=== PATIENT | male | born 1970 | race Caucasian/White ===

== ENCOUNTER 2017-02-23 15:27 | Inpatient (IN) | payer OTHER ==
[2017-02-23 15:54] LABS: GRAN # 3.21 (1.4-6.5); GRAN % 72.5 % (50.0-68.0); HEMOGLOBIN 12.9 g/dL (14.0-18.0); LYMPH # 1.1 (1.2-3.4); LYMPH % 25.5 % (22.0-35.0); MEAN CELL VOLUME 76.8 fl (80.0-105.0); MEAN CORPUSCULAR HEMOGLOBIN 25.1 pg (25.0-35.0); MEAN CORPUSCULAR HGB CONC 32.7 g/dl (31.0-37.0); MONO # 0.1 (0.1-0.6); RBC 5.13 10^6/uL (3.5-6.1); RED CELL DISTRIBUTION WIDTH 13.1 % (11.5-14.5); WHITE BLOOD COUNT 4.4 10^3/ul (4.5-11.0)
[2017-02-23 16:03] LABS: ALB/GLOB RATIO 1.1 (1.1-1.8); ALBUMIN 4.1 g/dL (3.0-4.8); ALT/SGPT 36 U/L (7-56); AST/SGOT 32 U/L (17-59); BLOOD UREA NITROGEN 16 mg/dL (7-21); CALCIUM 9.4 mg/dL (8.4-10.5); GFR AFRICAN-AMERICAN > 60; GFR NON-AFRICAN AMERICAN > 60; HDL CHOLESTEROL 31 mg/dL (29-60)
[2017-02-23 16:14] LABS: LDL CHOLESTEROL 131 mg/dL (0-129)
[2017-02-23 16:17] LABS: INR 1.15 (0.93-1.08); PROTHROMBIN TIME 13.2 SECONDS (9.4-12.5); TROPONIN I < 0.01 ng/mL
--- NOTE | 2017-02-23 16:49 | CT ---
PROCEDURE: CT HEAD WITHOUT CONTRAST. HISTORY: Code Stroke. The possible seizure COMPARISON: None available. TECHNIQUE: Axial computed tomography images were obtained through the head/brain without intravenous contrast. Radiation dose: Total exam DLP = 905.29 mGy-cm. This CT exam was performed using one or more of the following dose reduction techniques: Automated exposure control, adjustment of the mA and/or kV according to patient size, and/or use of iterative reconstruction technique. FINDINGS: HEMORRHAGE: No acute parenchymal, subarachnoid or extra-axial hemorrhage. BRAIN: No evidence of large acute infarct. No atrophy or chronic microvascular ischemic changes. VENTRICLES: No obstructive hydrocephalus. CALVARIUM: No acute calvarial fracture seen. PARANASAL SINUSES: Visualized paranasal sinuses are well-developed and currently well-aerated. . MASTOID AIR CELLS: Unremarkable as visualized. No inflammatory changes. OTHER FINDINGS: Orbits and contents unremarkable. IMPRESSION: No acute intracranial hemorrhage. . Note that these findings were discussed with Dr. Crain at approximately 4:40 p.m. with written down and read back verification.
--- NOTE | 2017-02-23 17:09 | ED PDOC ---
Arrival/HPI - General Chief Complaint: Altered Mental Status Time Seen by Provider: 02/23/17 15:45 Historian: Patient, Family, EMS - History of Present Illness Narrative History of Present Illness (Text): 02/23/17 20:53 Patient is a 46 yo male presents via ambulance for reportedly "pulling his car bry the side" as per EMS, "getting out and fell in some busehs and someone said his arm was twitching". History initially obtained via EMS personnel as no family present. On my exam, patient initially is sleepy but easily arousable. He states to me that he has been "sick" for a few days. He denies to me having any headache but reports that he has pain when he breathes and feels short of breath. Denies abdominal pain. Denies trauma. States he does not have prior seizure history. Initial history limited due to clinical condition and language barrier. Time/Duration: Prior to Arrival Symptom Onset: Sudden Past Medical History - Infectious Disease Hx of Infectious Diseases: None - Psychiatric Hx Substance Use: No Family/Social History Smoking Status: Unknown If Ever Smoked Hx Alcohol Use: No Hx Substance Use: No Allergies/Home Meds Allergies/Adverse Reactions: Allergies Unobtainable Allergy (Verified 02/23/17 15:38) Home Medications: Home Meds Medication Instructions Recorded Confirmed Unobtainable 02/23/17 02/23/17 Review of Systems - Review of Systems Constitutional: Fatigue, Fevers, Night Sweats Eyes: absent: Vision Changes, Photophobia, Eye Pain ENT: Sinus Congestion. absent: Hearing Changes, Voice Changes, Sore Throat, Rhinorrhea Respiratory: SOB, Cough. absent: Sputum, Wheezing Cardiovascular: Chest Pain, CARREON. absent: Palpitations, Edema, Calf Pain Gastrointestinal: Nausea, Appetite Changes. absent: Abdominal Pain, Constipation, Diarrhea, Hematochezia Genitourinary Male: absent: Dysuria, Frequency, Hematuria Musculoskeletal: Myalgias Skin: absent: Rash Neurological: Dizziness. absent: Headache, Focal Weakness, Seizure Endocrine: absent: Polyuria Hemo/Lymphatic: absent: Easy Bleeding Psychiatric: absent: Anxiety, Depression, Suicidal Ideation Physical Exam Vital Signs Reviewed: Yes Vital Signs Temp Pulse Resp BP Pulse Ox 02/23/17 20:00 103.3 F H 116 H 20 107/58 L 94 L 02/23/17 18:12 103.5 F H 120 H 18 128/53 L 99 02/23/17 17:58 100.0 F H 02/23/17 15:27 100 F H 134 H 20 95/83 L 95 Temperature: Febrile Pulse: Tachycardic Appearance: Positive for: Ill-Appearing Pain Distress: None Mental Status: Positive for: other (sleepy but arousable) - Systems Exam Head: Present: Atraumatic, Normocephalic Pupils: Present: PERRL Extroacular Muscles: Present: EOMI. No: Gaze Palsy Conjunctiva: No: Injected, Icteric Mouth: Present: Dry Pharnyx: No: ERYTHEMA, EXUDATE, Muffled/Hoarse Voice, Strider Nose (Internal): Present: Normal Inspection, No Active Bleeding Neck: Present: Normal Range of Motion. No: Meningeal Signs, MIDLINE TENDERNESS Respiratory/Chest: Present: Clear to Auscultation, Good Air Exchange. No: Respiratory Distress, Accessory Muscle Use Cardiovascular: Present: Tachycardic Abdomen: No: Tenderness, Distention Rectal: Present: Hemorrhoids. No: Gross Blood Upper Extremity: No: Cyanosis, Edema Lower Extremity: Present: NORMAL PULSES. No: Edema Neurological: Present: Speech Normal, Motor Func Grossly Intact, Normal Sensory Function. No: Memory Normal Skin: Present: Diaphoretic, Pale Psychiatric: Present: Alert, Normal Insight Medical Decision Making ED Course and Treatment: 02/23/17 15:48 Impression: 46 year old male presents to the Emergency department for AMS. Plan: -- Blood type/screen -- VBG -- CT of head -- Labs -- EKG -- Chest X-ray -- IV fluids -- Recephin -- Tamiflu Cap -- Toradol -- Tylenol -- Blood Culture -- Urine Culture -- Reassess and disposition Progress Notes: Patient presents via ALS. Hx obtained from prehospital personnel, and patient is able to communicate with some limited Congolese. On initial exam he is sleepy but arousable and follows commands, moves all extremities and answers basic questions. 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 It is NOT reported that patient had violent shaking activity or was unresponsive. CODE stroke called and patient's case reviewed initially with oncall neuro Dr. Rodriguez 02/23/17 16:00 CT of head reviewed by radiologist, shows no acute intracranial hemorrhage. 02/23/17 16:00 Chest X-ray reviewed by radiologist, shows no acute processes. Patient re-evaluated upon return from CT. He is arousable and answers questions. He is noted be tachycardic and mildly hypotensive. No seizure activity noted with serial exams in ED. IV fluids ordered. Patient found to be febrile. Tylenol ordered and iv fluids continued. No respiratory distress noted. At this time we were able to communicate with patient additionally through machine erector phone. He answers questions and communicates appropriately. He denies seizure history. He states he has been "sick" with chills and bodyaches for past three days. He has been taking medication from his home country of [place]. He states he has bee present in the country for several months. He states he remember driving in his car and "feeling cold and shaky". He states he felt so weak that he pulled the car over but then he states he does not know what happened. I suspect possible syncopal episode, with differential including ? seizure, although patient does not appear to be postictal and there is currently no signs of acute trauma. Patient tachycardic but no hypoxia, no calf pain. I suspect tachy due to fever. Neck is consistently supple and he denies any headache or neck pain. Toradol ordered. Tamiflu ordered. Rocephin ordered ? respiratory infection although cxr read as clear. No wheezing on exam. Patient has been taking antibiotic from [place] past three days. No rash noted. No abdominal pain with serial exams. CT angio ordered as he is persistently tachy, complains of chest pain with breaths. Will admit to hospitalist for serial exams, monitoring, serial neuro exams, evaluation for infectious process. Case d/w Dr. Meyers accept admission to hospitalist. Patient's family at bedside. He supplements history and has communicated plan to patient he is agreeable to admission. 02/23/17 21:01 CT of chest reviewed by radiologist, shows no aneurysm, dissection or central pulmonary embolus; motion and bolus timing limits evaluation of peripheral arteries; no focal pneumonia. - Lab Interpretations Lab Results: 02/23/17 15:51 02/23/17 15:51 Lab Results 02/23/17 18:37: Blood Type Confirm B POSITIVE 02/23/17 18:13: Urine Opiates Screen Negative, Urine Methadone Screen Negative, Ur Barbiturates Screen Negative, Ur Phencyclidine Scrn Negative, Ur Amphetamines Screen Negative, U Benzodiazepines Scrn Negative, U Oth Cocaine Metabols Negative, U Cannabinoids Screen Negative 02/23/17 17:36: Influenza Typ A,B (EIA) Negative for flu a/b 02/23/17 16:41: pO2 50, VBG pH 7.38, VBG pCO2 43.0, VBG HCO3 25.4, VBG Total CO2 26.7, VBG O2 Sat (Calc) 89.9 H, VBG Base Excess 0.0, VBG Potassium 4.1, Glucose 135 H, Lactate 1.7, FiO2 21.0, Sodium 135.0, Chloride 104.0, Venous Blood Potassium 4.1 02/23/17 16:41: Blood Type B POSITIVE, Antibody Screen Negative, BBK History Checked No verified bt 02/23/17 15:51: Sodium 137, Potassium 4.1, Chloride 102, Carbon Dioxide 22, Anion Gap 18, BUN 16, Creatinine 1.1, Est GFR ( Amer) > 60, Est GFR (Non- Af Amer) > 60, Random Glucose 150 H, Calcium 9.4, Total Bilirubin 0.8, AST 32, ALT 36, Alkaline Phosphatase 56, Lactate Dehydrogenase 488, Total Creatine Kinase 73, Troponin I < 0.01, Total Protein 7.7, Albumin 4.1, Globulin 3.6, Albumin/Globulin Ratio 1.1, Triglycerides 103, Cholesterol 189, LDL Cholesterol Direct 131 H, HDL Cholesterol 31 02/23/17 15:51: PT 13.2 H, INR 1.15 H, APTT 27.0 02/23/17 15:51: WBC 4.4 L, RBC 5.13, Hgb 12.9 L, Hct 39.4 L, MCV 76.8 L, MCH 25.1, MCHC 32.7, RDW 13.1, Plt Count 126, MPV 12.0 H, Gran % 72.5 H, Lymph % ( Auto) 25.5, Union % (Auto) 2.0, Eos % (Auto) 0.0 L, Baso % (Auto) 0.0, Gran # 3.21, Lymph # 1.1 L, Union # 0.1, Eos # 0.0, Baso # 0.00 02/23/17 15:30: Phosphorus 1.3 L*, Magnesium 1.3 L 02/23/17 15:30: Alcohol, Quantitative < 10 02/23/17 15:30: Salicylates < 1 L, Acetaminophen < 10.0 L - RAD Interpretation Radiology Orders: 02/23/17 15:48 HEAD W/O (CODE STROKE) [CT] Stat CHEST PORTABLE [RAD] Stat 02/23/17 18:47 ANGIO CHEST PE PROTOCOL [CT] Stat Human Capital Analyst: Radiologist - EKG Interpretation EKG Interpretation (Text): 02/23/17 21:01 EKG at 1535 sinus tachycardia rate of [address] elevations Interpreted by ED Physician: Yes Type: 12 lead EKG - Medication Orders Current Medication Orders: Potassium Phosphate 15 mmole/ (Sodium Chloride) 255 mls @ 63.75 mls/hr IV .Q4H STA Stop: 02/24/17 01:25 Discontinued Medications Acetaminophen (Tylenol 325mg Tab) 650 mg PO ONCE STA Stop: 02/23/17 17:40 Last Admin: 02/23/17 17:58 Dose: 650 mg MAR Pain/Vitals Document 02/23/17 17:58 [email or web address] (Rec: 02/23/17 17:58 [email or web address] [id number]) Vitals Temperature (97.6 F-99.6 F) 100.0 F Temperature Source Oral Lactated Ringer's 2,850 ml/ IV (SUPPLIES) 2,850 mls @ 5,700 mls/hr IV ONCE ONE PRN Reason: 60 ML/KG/HR Stop: 02/23/17 17:02 Last Admin: 02/23/17 17:22 Dose: 5,700 mls/hr eMAR Start Stop Document 02/23/17 17:22 [email or web address] (Rec: 02/23/17 17:23 [email or web address] [id number]) Intravenous Solution Start Date 02/23/17 Start Time 17:22 End Date 02/23/17 Ceftriaxone Sodium (Rocephin 1 Gram Ivpb) 1 gm in 100 mls @ 200 mls/hr IVPB ONCE STA PRN Reason: Protocol Stop: 02/23/17 18:09 Last Admin: 02/23/17 17:58 Dose: 200 mls/hr eMAR Start Stop Document 02/23/17 17:58 [email or web address] (Rec: 02/23/17 17:58 [employer] [id number]) Intravenous Solution Start Date 02/23/17 Start Time 17:58 End Date 02/23/17 Ketorolac Tromethamine (Toradol) 30 mg IVP ONCE ONE Stop: 02/23/17 18:33 Last Admin: 02/23/17 19:19 Dose: 30 mg MAR Pain Assessment Document 02/23/17 19:19 [facility] [facility] [facility] [employer] (Rec: 02/23/17 19:20 [employer] [facility] [id number]) Pain Reassessment Is this a pain reassessment? No Sleep Is patient sleeping during reassessment? No Presence of Pain Presence of Pain Yes Pain Scale Used Pain Scale Used Numeric Location Left, Right or Bilateral Bilateral Description Description Constant Intensity of Pain at present 2 Pain Behavior Facial Grimacing Aggravating Factors Changing Position Alleviating Factors/Management Position Change Techniques Alleviating Factors Medication IVP Administration Document 02/23/17 19:19 CLAIR (Rec: 02/23/17 19:20 [employer] [id number]) Charges for Administration # of IVP Administrations 1 Oseltamivir Phosphate (Tamiflu Cap) 75 mg PO STAT STA PRN Reason: Protocol Stop: 02/23/17 17:40 Last Admin: 02/23/17 17:58 Dose: 75 mg NIHSS Scale ([place]) Time Performed: 15:40 - How Severe is the Stoke Baseline Level of Consciousness: 1=Drowsy LOC to Questions: 0=Both comments correct LOC to commands: 0=Obeys both correctly Best Gaze: 0=Normal Visual: 0=No visual loss Facial: 0=Normal Motor Arm - Left: 0=No drift Motor Arm - Right: 0=No drift Motor Leg - Left: 0=No drift Motor Leg - Right: 0=No drift Limb Ataxia: 0=Absent Sensory: 0=Normal Best Language: 0=No aphasia Dysarthia: 1=Mild to moderate slurring Extinction & Inattention (Neglect): 0=Normal, no object Score: 2 Risk Level: Minor Stroke Risk rTPA Inclusion/Exclusion - Refusal of Treatment Patient Refused Treatment: Yes - Inclusion Criteria for Altepase Time of Onset is Well Established to be Less Than 270 Minute Before Treatment Would Begin: No Disposition/Present on Arrival - Present on Arrival Any Indicators Present on Arrival: No History of DVT/PE: No History of Uncontrolled Diabetes: No Urinary Catheter: No History of Decub. Ulcer: No History Surgical Site Infection Following: None - Disposition Have Diagnosis and Disposition been Completed?: Yes Diagnosis: Syncope, Fever, Tachycardia, Chest pain, Dyspnea Disposition: HOSPITALIZED Disposition Time: 20:00 Patient Plan: Admission, Telemetry Patient Problems: Current Active Problems Problem Status Onset Chest pain Acute Dyspnea Acute Fever Acute Syncope Acute Tachycardia Acute Condition: SERIOUS
[2017-02-23 17:18] LABS: ACETAMINOPHEN < 10.0 ug/ml (10.0-20.0); SALICYLATE < 1 mg/dL (2.0-20.0)
[2017-02-23 17:26] LABS: MAGNESIUM 1.3 mg/dL (1.7-2.2)
[2017-02-23 17:29] LABS: VENOUS BLOOD GAS PO2 50 mm/Hg (30-55); VENOUS BLOOD PH 7.38 (7.32-7.43)
[2017-02-23] MEDS ORDERED: cefTRIAXone 1 gm 1 GM/100 ML BAG IVPB STA (17:40)
--- NOTE | 2017-02-23 17:40 | RAD ---
HISTORY: Altered mental status. COMPARISON: No prior. FINDINGS: LUNGS: No active pulmonary disease. PLEURA: No significant pleural effusion identified, no pneumothorax apparent. CARDIOVASCULAR: No radiographic findings to suggest acute or significant cardiovascular disease. OSSEOUS STRUCTURES: No significant abnormalities. VISUALIZED UPPER ABDOMEN: Normal. OTHER FINDINGS: None. IMPRESSION: No active disease.
[2017-02-23 18:47] LABS: BARBITURATES, UR NEGATIVE (NEGATIVE); BENZODIAZEPINES, UR NEGATIVE (NEGATIVE); OPIATES, UR NEGATIVE (NEGATIVE); PHENCYCLIDINE, UR NEGATIVE (NEGATIVE)
[2017-02-23] MEDS ORDERED: Iohexol 350 MG/100 ML VIAL ONE (19:08)
--- NOTE | 2017-02-23 19:57 | CARD ---
APPROVED REPORT EKG Measurement Heart [id number] <Conclusion> Sinus tachycardia Otherwise normal ECG
[2017-02-23] MEDS ORDERED: Potassium Phosphate 3 mmol/ml Inj IV STA (20:17)
[2017-02-23] MEDS ORDERED: Potassium Phosphate 15 MMOLE in Sodium Chloride 0.9% 250 ML IV STA (21:26)
--- NOTE | 2017-02-23 21:39 | CT ---
EXAM: CT Angiography Chest With Intravenous Contrast EXAM DATE/TIME: 02/23/2017 6:47 PM CLINICAL HISTORY: 46 years old, male; Signs and symptoms; Shortness of breath; Additional info: R/O pe TECHNIQUE: Axial computed tomographic angiography images of the chest with intravenous contrast using pulmonary embolism protocol. All CT scans at this facility use one or more dose reduction techniques, viz.: automated exposure control; ma/kV adjustment per patient size (including targeted exams where dose is matched to indication; i.e. head); or iterative reconstruction technique. MIP reconstructed images were created and reviewed. Coronal and sagittal reformatted images were created and reviewed. CONTRAST: 100 mL of OMNI 350 administered intravenously. COMPARISON: There are no prior studies for comparison. FINDINGS: Artifacts: Motion artifact degrades image quality. Heart, aorta and Pulmonary arteries: Heart size is normal. There is no pericardial effusion.There is no aneurysm or dissection. Motion and bolus timing limits evaluation of pulmonary arteries. There are no central pulmonary emboli. Peripheral vessels are not optimally opacified which limits evaluation. Lungs and pleural spaces: Trachea and main bronchi are patent. There is no pneumothorax.There is minimal dependent atelectasis in the upper lobes. There is more extensive airspace disease at the lung bases. There is no lobar or segmental consolidation. There are no effusions. Mediastinum: The esophagus is unremarkable. There are no pathologically enlarged mediastinal or hilar nodes. Thyroid: Thyroid is only partially imaged. Bones/joints: There are no acute osseous abnormalities. Soft tissues: unremarkable Upper abdomen: There are no acute abnormalities in the visualized portion of the abdomen. There is a left renal cyst. There is adrenal thickening bilaterally. IMPRESSION: No aneurysm, dissection or central pulmonary embolus; motion and bolus timing limits evaluation of peripheral arteries; no focal pneumonia
[2017-02-23] MEDS ORDERED: Magnesium Sulfate 2 GM in Sodium Chloride 0.9% 100 ML IVPB ONE (22:07)
--- NOTE | 2017-02-23 22:57 | CP.PCM.HP ---
<Huy Lopez - Last Filed: 02/24/17 00:04> History of Present Illness - History of Present Illness History of Present Illness: Mr. Whaley is a 46 year old sami speaking male with a past medical history significant for HLD who was BIBA after he was found to have AMS on the side of the road. According to the patient, for the past three days he has been having dry cough, tactile fever, and intermittent SOB. While at work today in [place], he decided to leave early as he was feeling "weak". On his way home from work, he reports that he began to feel "cold and shaky" so he pulled his car over. Patient states that he has no recollection of any events from that time until he woke up several hours later in the ED. He reports that he has been taking three [place] brand medications, including one antibiotic, for his symptoms for the past two days but that he has not experienced much relief from these medications and cannot recall the name of these medications. While in the ED, patient was noted to be tachycardic and febrile. A chest x-ray, CT head and CTA chest were ordered and showed no acute processes, including intracranial hemorrhage, focal pneumonia and central pulmonary embolus. Of note, patient endorses that he has had intermittent bright red blood per rectum after BM's with a known history of hemorrhoids and intermittent epigastric abdominal discomfort. He denies any recent travel/trauma/surgery/immobilization, sick contacts, headache, changes in his vision, rhinorrhea, ear pain/discharge, sore throat, dysphagia, chest pain, palpitations, leg swelling, orthopnea, wheezing, hemoptysis, N/V, diarrhea, constipation, melena, burning/pain with urination, urinary frequency, hematuria, skin changes, joint pain, or any numbness/tingling /weakness of any extremity. 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[place]; Moved here from [place] four months ago; Estonian is patients first language Allergies: NKDA Home Medications: As per MAR Present on Admission - Present on Admission Any Indicators Present on Admission: No Review of Systems - Review of Systems Review of Systems: As stated in HPI, otherwise negative Past Patient History - Infectious Disease Hx of Infectious Diseases: None - Tetanus Immunizations Tetanus Immunization: Unknown - Past Social History Smoking Status: Unknown If Ever Smoked - PSYCHIATRIC Hx Substance Use: No - SURGICAL HISTORY Hx Surgeries: No Meds Allergies/Adverse Reactions: Allergies Allergy/AdvReac Type Severity Reaction Status Date / Time Unobtainable Allergy Verified 02/23/17 15:38 Physical Exam - Constitutional Appears: Non-toxic, No Acute Distress - Head Exam Head Exam: ATRAUMATIC, NORMAL INSPECTION, NORMOCEPHALIC - Eye Exam Eye Exam: EOMI, Normal appearance, PERRL. absent: Conjunctival injection, Nystagmus, Periorbital swelling, Periorbital tenderness, Scleral icterus Pupil Exam: NORMAL ACCOMODATION, PERRL. absent: Fixed, Irregular, Miosis, Mydriatic, Unequal - ENT Exam ENT Exam: Mucous Membranes Moist, Normal Exam, Normal External Ear Exam, Normal Oropharynx. absent: Mucous Membranes Dry - Neck Exam Neck exam: Positive for: Full Rom, Normal Inspection. Negative for: Lymphadenopathy, Meningismus, Tenderness, Thyromegaly - Respiratory Exam Respiratory Exam: Clear to Auscultation Bilateral, NORMAL BREATHING PATTERN. absent: Accessory Muscle Use, Chest Wall Tenderness, Decreased Breath Sounds, Prolonged Expiratory Phase, Rales, Rhonchi, Wheezes, Respiratory Distress, Stridor - Cardiovascular Exam Cardiovascular Exam: Tachycardia, REGULAR RHYTHM, +S1, +S2 - GI/Abdominal Exam GI & Abdominal Exam: Normal Bowel Sounds, Soft. absent: Bruit, Diminished Bowel Sounds, Distended, Firm, Guarding, Hernia, Hyperactive Bowel Sounds, Hypoactive Bowel Sounds, Mass, Organomegaly, Pulsatile Mass, Rebound, Rigid, Tenderness - Extremities Exam Extremities exam: Positive for: full ROM, normal capillary refill, normal inspection, pedal pulses present. Negative for: calf tenderness, joint swelling , pedal edema, tenderness - Back Exam Back exam: FULL ROM, NORMAL INSPECTION. absent: CVA tenderness (L), CVA tenderness (R), muscle spasm, paraspinal tenderness, rash noted, tenderness, vertebral tenderness - Neurological Exam Neurological exam: Alert, CN II-XII Intact, Oriented x3, Reflexes Normal - Psychiatric Exam Psychiatric exam: Normal Affect, Normal Mood - Skin Skin Exam: Dry, Intact, Normal Color, Warm Results - Vital Signs Recent Vital Signs: Last Vital Signs Temp 103.3 F H 02/23/17 20:00 Pulse 116 H 02/23/17 20:00 Resp 20 02/23/17 20:00 BP 107/58 L 02/23/17 20:00 Pulse Ox 94 L 02/23/17 20:00 - Labs Result Diagrams: 02/23/17 15:51 02/23/17 15:51 Labs: Laboratory Results - last 24 hr 02/23/17 22:21 POC Glucose (mg/dL) 123 H Assessment & Plan - Assessment and Plan (Free Text) Assessment: 46 year old sami speaking male with a past medical history significant for HLD who was BIBA after he was found to have AMS on the side of the road. According to the patient, for the past three days he has been having dry cough, tactile fever, and intermittent SOB. While in the ED, patient was noted to be tachycardic and febrile. A chest x-ray, CT head and CTA chest were ordered and showed no acute processes, including intracranial hemorrhage, focal pneumonia and central pulmonary embolus. Plan: 1. AMS -CT Head negative for acute intracranial process -UDS, Salicylates, and Acetaminophen all within normal limits -Alert and Oriented to person, place, time and event on reevaluation -Current NIHSS score of 0 -Nursing swallow screen passed -Neurochecks Q4 -Fall risk precautions -Neuro consulted 2. SIRS -Likely URI -Chest X-Ray and Chest CTA both negative for active disease, focal pneumonia and PE -Influenza negative -Febrile to 103.5 (rectal) with tachycardia, no leukocytosis/leukopenia, and no tachypnea; Lactate 1.7 -Given one dose of Tamiflu and Rocephin in ED -Rocephin 1gm IVPB daily -Tylenol 650mg PO Q6H PRN for fever -Procal, HIV, Mycoplasma, and Blood Culture pending -Daily CBC 3. Hypophosphatemia -Phosphorous found to be 1.3 -Phosphorous 15mmol supplemented -Daily phosphorous 4. Hypomagnesemia -Magnesium found to be 1.3 -Magnesium Sulfate 2gm IV supplemented -Daily magnesium GI Prophylaxis: Protonix DVT Prophylaxis: SCD's Diet: Heart Healthy Patient seen and case discussed with attending, Dr. Meyers. - Date & Time Date: 02/23/17 Time: 23:06 <Melida Meyers - Last Filed: 02/24/17 04:20> Results - Vital Signs Recent Vital Signs: Last Vital Signs Temp 98.2 F 02/24/17 00:01 Pulse 109 H 02/24/17 02:00 Resp 20 02/24/17 00:01 BP 98/50 L 02/24/17 00:01 Pulse Ox 95 02/24/17 00:01 - Labs Result Diagrams: 02/23/17 15:51 02/23/17 15:51 Labs: Laboratory Results - last 24 hr 02/23/17 22:21 POC Glucose (mg/dL) 123 H Attending/Attestation - Attestation I have personally seen and examined this patient.: Yes I have fully participated in the care of the patient.: Yes I have reviewed all pertinent clinical information: Yes Notes (Text): 02/24/17 04:17 Patient was seen when he was in bed # 5 in the ER. Agree with history , physical examination, assessment and plan.
[2017-02-24] MEDS: Sodium Chloride 0.9% 1,000 ML IV SCH ×2 (00:47→17:09)
[2017-02-24] MEDS: Pantoprazole 40 mg EC Tab PO SCH (07:03)
[2017-02-24 07:29] LABS: GRAN # 2.97 (1.4-6.5); GRAN % 77.4 % (50.0-68.0); HEMOGLOBIN 10.5 g/dL (14.0-18.0); LYMPH # 0.7 (1.2-3.4); LYMPH % 17.4 % (22.0-35.0); MEAN CELL VOLUME 77.5 fl (80.0-105.0); MEAN CORPUSCULAR HEMOGLOBIN 24.6 pg (25.0-35.0); MEAN CORPUSCULAR HGB CONC 31.7 g/dl (31.0-37.0); MONO # 0.2 (0.1-0.6); MONO % 5.2 % (1.0-6.0); RBC 4.27 10^6/uL (3.5-6.1); RED CELL DISTRIBUTION WIDTH 13.2 % (11.5-14.5); WHITE BLOOD COUNT 3.8 10^3/ul (4.5-11.0)
[2017-02-24 07:40] LABS: ALB/GLOB RATIO 1.1 (1.1-1.8); ALBUMIN 3.1 g/dL (3.0-4.8); ALT/SGPT 70 U/L (7-56); AST/SGOT 79 U/L (17-59); BLOOD UREA NITROGEN 13 mg/dL (7-21); CALCIUM 8.2 mg/dL (8.4-10.5); GFR AFRICAN-AMERICAN > 60; GFR NON-AFRICAN AMERICAN > 60; MAGNESIUM 2.1 mg/dL (1.7-2.2)
[2017-02-24] MEDS ORDERED: levoFLOXacin 500 mg in D5W 500 MG/100 ML BAG IVPB STA (08:12)
[2017-02-24] MEDS ORDERED: cefTRIAXone 1 gm 1 GM/100 ML BAG IVPB SCH (10:00)
--- NOTE | 2017-02-24 12:44 | CP.PCM.PN ---
<Viktor Dias - Last Filed: 02/24/17 12:44> Subjective - Date & Time of Evaluation Date of Evaluation: 02/24/17 Time of Evaluation: 08:15 - Subjective Subjective: IM Progress note: Pt seen and examined at bedside. No acute events overnight. Pt complains of cough and fevers. He also complains of some constipation. 12 Point ROS performed and negative other than stated above. Objective - Vital Signs/Intake and Output Vital Signs (last 24 hours): Temp Pulse Resp BP Pulse Ox 102.9 F H 108 H 18 107/54 L 95 02/24/17 11:57 02/24/17 06:00 02/24/17 06:00 02/24/17 06:00 02/24/17 06:00 Intake and Output: 02/24/17 02/24/17 06:59 18:59 Intake Total 600 Balance 600 - Medications Medications: Current Medications Acetaminophen (Tylenol 325mg Tab) 650 mg PO Q6H PRN PRN Reason: Fever >100.4 F Last Admin: 02/24/17 11:57 Dose: 650 mg Sodium Chloride (Sodium Chloride 0.9%) 1,000 mls @ 100 mls/hr IV .Q10H [facility] Last Admin: 02/24/17 00:47 Dose: 100 mls/hr Ondansetron HCl (Zofran Inj) 4 mg IVP Q6H PRN PRN Reason: Nausea/Vomiting Oseltamivir Phosphate (Tamiflu Cap) 75 mg PO BID [facility] PRN Reason: Protocol Stop: 03/01/17 09:54 Last Admin: 02/24/17 10:07 Dose: 75 mg Pantoprazole Sodium (Protonix Ec Tab) 40 mg PO 0600 [facility] Last Admin: 02/24/17 07:03 Dose: 40 mg - Labs Labs: 02/24/17 06:30 02/24/17 06:15 PT 13.2 SECONDS (9.4-12.5) H 02/23/17 15:51 INR 1.15 (0.93-1.08) H 02/23/17 15:51 APTT 27.0 Seconds (25.1-36.5) 02/23/17 15:51 Assessment and Plan - Assessment and Plan (Free Text) Assessment: 46 year old croatian speaking male with a past medical history significant for HLD who was BIBA after he was found to have AMS . Pt also c/o of dry cough, fever, and intermittent SOB. While in the ED, patient was noted to be tachycardic and febrile. A chest x-ray, CT head and CTA chest were ordered and showed no acute processes, including intracranial hemorrhage, focal pneumonia and central pulmonary embolus. 1. AMS -CT Head negative for acute intracranial process -UDS, Salicylates, and Acetaminophen all within normal limits -Alert and Oriented to person, place, time and event on reevaluation -Current NIHSS score of 0 -Nursing swallow screen passed -Neurochecks Q4 -Fall risk precautions -Neuro consulted 2. SIRS - Likely 2/2 URI viral vs bacterial - Fever of 102.9 today -Chest X-Ray and Chest CTA both negative for active disease, focal pneumonia and PE -Influenza negative -In the ED Febrile to 103.5 (rectal) with tachycardia, no leukocytosis/ leukopenia, and no tachypnea; Lactate 1.7 -Tamiflu started - Rocephin d/makeda and Levaquin started -Tylenol 650mg PO Q6H PRN for fever -Procal, HIV, Mycoplasma, and Blood Culture pending -Daily CBC - F/u UA 3. Hypophosphatemia -Resolved -Phosphorous found to be 1.3 -Phosphorous 15mmol supplemented -Daily phosphorous 4. Hypomagnesemia -Resolved -Magnesium found to be 1.3 -Magnesium Sulfate 2gm IV supplemented -Daily magnesium 5. Constipation - Miralax started GI Prophylaxis: Protonix DVT Prophylaxis: SCD's Diet: Heart Healthy Patient seen and case discussed with attending, Dr Mathew. <Elyssa Mathew - Last Filed: 02/25/17 14:06> Objective - Vital Signs/Intake and Output Vital Signs (last 24 hours): Temp Pulse Resp BP Pulse Ox 97.8 F 82 21 120/77 97 02/25/17 12:00 02/25/17 12:00 02/25/17 12:00 02/25/17 12:00 02/25/17 06:00 Intake and Output: 02/25/17 02/25/17 06:59 18:59 Intake Total 2480 Output Total 760 Balance 1720 - Medications Medications: Current Medications Acetaminophen (Tylenol 325mg Tab) 650 mg PO Q6H PRN PRN Reason: Fever >100.4 F Last Admin: 02/24/17 17:45 Dose: 650 mg Guaifenesin/Codeine Phosphate (Robitussin W/Codeine) 5 ml PO Q4H PRN PRN Reason: Cough and congestion Sodium Chloride (Sodium Chloride 0.9%) 1,000 mls @ 100 mls/hr IV .Q10H [facility] Last Admin: 02/25/17 13:29 Dose: 100 mls/hr Levofloxacin/Dextrose (Levaquin 750mg) 750 mg IVPB DAILY [facility] Last Admin: 02/25/17 11:29 Dose: 750 mg Ondansetron HCl (Zofran Inj) 4 mg IVP Q6H PRN PRN Reason: Nausea/Vomiting Oseltamivir Phosphate (Tamiflu Cap) 75 mg PO BID [facility] PRN Reason: Protocol Stop: 03/01/17 09:54 Last Admin: 02/25/17 11:20 Dose: 75 mg Pantoprazole Sodium (Protonix Ec Tab) 40 mg PO 0600 [facility] Last Admin: 02/25/17 06:36 Dose: 40 mg Polyethylene Glycol (Miralax) 17 gm PO BID [facility] Last Admin: 02/25/17 11:24 Dose: 17 gm - Labs Labs: 02/25/17 09:40 02/25/17 09:40 PT 13.2 SECONDS (9.4-12.5) H 02/23/17 15:51 INR 1.15 (0.93-1.08) H 02/23/17 15:51 APTT 27.0 Seconds (25.1-36.5) 02/23/17 15:51 Attending/Attestation - Attestation I have personally seen and examined this patient.: Yes I have fully participated in the care of the patient.: Yes I have reviewed all pertinent clinical information, including history, physical exam and plan: Yes Notes (Text): 02/25/17 14:03 Patient was seen and examined with medical registrar. Agreed with resident assessment and plan. 46 year old Japanese speaking male with aPMH of Hyperlipidemia was admitted with fever/cough and confusion, Patient confusion has resolved.Patient CT scan of head is negative.His fever is likely Bronchitis/or early Pneumonia, We will follow up cultures and will start patient on Levofloxacin. Management plan was discussed in detail with patient Education was provided.
--- NOTE | 2017-02-24 15:36 | CARD ---
APPROVED REPORT EKG Measurement Heart [id number] NM [id number] <Conclusion> Normal sinus rhythm Normal ECG
[2017-02-24] MEDS: POLYETHYLENE GLYCOL 3350 17 GM/Dose PACKET PO SCH (17:46)
[2017-02-24 20:12] LABS: URINE BILIRUBIN NEGATIVE (NEGATIVE); URINE BLOOD SMALL (NEGATIVE); URINE GLUCOSE (UA) NEGATIVE (NEGATIVE); URINE LEUKOCYTE ESTERASE NEGATIVE Leu/uL (NEGATIVE); URINE NITRATE NEGATIVE (NEGATIVE); URINE PROTEIN NEGATIVE mg/dL (<30 mg/dL); URINE UROBILINOGEN 0.2 E.U./dL (<1 E.U./dL)
[2017-02-24 20:15] LABS: URINE APPEARANCE CLEAR (CLEAR); URINE COLOR YELLOW (YELLOW)
[2017-02-24 20:35] LABS: URINE WBC NEGATIVE /hpf (0-6)
[2017-02-25] MEDS: Sodium Chloride 0.9% 1,000 ML IV SCH ×6 (03:08→22:14)
[2017-02-25] MEDS: Pantoprazole 40 mg EC Tab PO SCH (06:36)
[2017-02-25 09:56] LABS: BASO # 0.01 K/mm3 (0.0-2.0); BASO % 0.3 % (0.0-3.0); GRAN # 1.64 (1.4-6.5); GRAN % 48.6 % (50.0-68.0); HEMOGLOBIN 11.7 g/dL (14.0-18.0); LYMPH # 1.3 (1.2-3.4); LYMPH % 39.2 % (22.0-35.0); MEAN CELL VOLUME 76.7 fl (80.0-105.0); MEAN CORPUSCULAR HGB CONC 32.6 g/dl (31.0-37.0); MEAN PLATELET VOLUME 12.3 fl (7.0-11.0); MONO # 0.4 (0.1-0.6); MONO % 11.9 % (1.0-6.0); RBC 4.68 10^6/uL (3.5-6.1); RED CELL DISTRIBUTION WIDTH 13.8 % (11.5-14.5); WHITE BLOOD COUNT 3.4 10^3/ul (4.5-11.0)
[2017-02-25] MEDS ORDERED: levoFLOXacin 750 mg in D5W 150 ML BAG IVPB SCH (10:00)
[2017-02-25 10:16] LABS: ALB/GLOB RATIO 1.1 (1.1-1.8); ALBUMIN 3.6 g/dL (3.0-4.8); ALT/SGPT 65 U/L (7-56); AST/SGOT 54 U/L (17-59); BLOOD UREA NITROGEN 8 mg/dL (7-21); GFR AFRICAN-AMERICAN > 60; GFR NON-AFRICAN AMERICAN > 60
[2017-02-25] MEDS ORDERED: guaiFENesin-Codeine 100-10mg/5ml Syrup (5 ml) UD PO PRN (10:26)
--- NOTE | 2017-02-25 11:06 | CP.PCM.PN ---
<Viktor Dias - Last Filed: 02/25/17 10:59> Subjective - Date & Time of Evaluation Date of Evaluation: 02/25/17 Time of Evaluation: 09:30 - Subjective Subjective: IM Progress note: Pt seen and examined at bedside. No acute events overnight. Pt still complains of cough and one episode of fever yesterday. 12 Point ROS performed and negative other than stated above. Objective - Vital Signs/Intake and Output Vital Signs (last 24 hours): Temp Pulse Resp BP Pulse Ox 99.3 F 92 H 20 109/76 97 02/25/17 06:00 02/25/17 06:00 02/25/17 06:00 02/25/17 06:00 02/25/17 06:00 Intake and Output: 02/25/17 02/25/17 06:59 18:59 Intake Total 2480 Output Total 760 Balance 1720 - Medications Medications: Current Medications Acetaminophen (Tylenol 325mg Tab) 650 mg PO Q6H PRN PRN Reason: Fever >100.4 F Last Admin: 02/24/17 17:45 Dose: 650 mg Guaifenesin/Codeine Phosphate (Robitussin W/Codeine) 5 ml PO Q4H PRN PRN Reason: Cough and congestion Sodium Chloride (Sodium Chloride 0.9%) 1,000 mls @ 100 mls/hr IV .Q10H [facility] Last Admin: 02/25/17 06:36 Dose: Not Given Levofloxacin/Dextrose (Levaquin 750mg) 750 mg IVPB DAILY [facility] Ondansetron HCl (Zofran Inj) 4 mg IVP Q6H PRN PRN Reason: Nausea/Vomiting Oseltamivir Phosphate (Tamiflu Cap) 75 mg PO BID [facility] PRN Reason: Protocol Stop: 03/01/17 09:54 Last Admin: 02/24/17 17:45 Dose: 75 mg Pantoprazole Sodium (Protonix Ec Tab) 40 mg PO 0600 [facility] Last Admin: 02/25/17 06:36 Dose: 40 mg Polyethylene Glycol (Miralax) 17 gm PO BID [facility] Last Admin: 02/24/17 17:46 Dose: 17 gm - Labs Labs: 02/25/17 09:40 02/25/17 09:40 PT 13.2 SECONDS (9.4-12.5) H 01/12/18 15:51 INR 1.15 (0.93-1.08) H 02/23/17 15:51 APTT 27.0 Seconds (25.1-36.5) 02/23/17 15:51 - Constitutional Appears: No Acute Distress - Head Exam Head Exam: ATRAUMATIC, NORMOCEPHALIC - Eye Exam Eye Exam: EOMI, PERRL - ENT Exam ENT Exam: Mucous Membranes Moist - Neck Exam Neck Exam: Full ROM - Respiratory Exam Respiratory Exam: Clear to Ausculation Bilateral. absent: Rales, Rhonchi - Cardiovascular Exam Cardiovascular Exam: REGULAR RHYTHM, RRR, +S1, +S2 - GI/Abdominal Exam GI & Abdominal Exam: Soft. absent: Tenderness - Extremities Exam Extremities Exam: absent: Calf Tenderness - Neurological Exam Neurological Exam: Alert, Awake, Oriented x3 - Psychiatric Exam Psychiatric exam: Normal Affect, Normal Mood - Skin Skin Exam: Dry, Intact, Warm Assessment and Plan - Assessment and Plan (Free Text) Assessment: 46 year old kiswahili speaking male with a past medical history significant for HLD who was BIBA after he was found to have AMS . Pt also c/o of dry cough, fever, and intermittent SOB. While in the ED, patient was noted to be tachycardic and febrile. A chest x-ray, CT head and CTA chest were ordered and showed no acute processes, including intracranial hemorrhage, focal pneumonia and central pulmonary embolus. 1. AMS -CT Head negative for acute intracranial process -Alert and Oriented to person, place, time and event on reevaluation -Nursing swallow screen passed -Neurochecks Q4 -Fall risk precautions -Neuro consulted for recs 2. SIRS - Bronchitis vs pneumonia Likely bacterial due to elevated procal - Fever of 101.9 yesterday 6 pm ; Wbc of 3.4 -Procal elevated 35 - Legeionella and strep pneumo ordered - f/u CXR this morning - Robittusin w/ codeine PRN cough -Chest X-Ray and Chest CTA both negative for active disease, focal pneumonia and PE -Influenza negative -In the ED Febrile to 103.5 (rectal) with tachycardia, no leukocytosis/ leukopenia, and no tachypnea; Lactate 1.7 -Tamiflu started - Continue Levaquin 750mg daily -Tylenol 650mg PRN for fever - HIV, Mycoplasma, and Blood Culture pending -Daily CBC - F/u UA 3. Hypophosphatemia -Resolved -cont to monitor 4. Hypomagnesemia -Resolved -cont to monitor 5. Constipation - Miralax started GI Prophylaxis: Protonix DVT Prophylaxis: SCD's Diet: Heart Healthy Patient seen and case discussed with attending, Dr Mathew. <Elyssa Mathew - Last Filed: 02/25/17 14:08> Objective - Vital Signs/Intake and Output Vital Signs (last 24 hours): Temp Pulse Resp BP Pulse Ox 97.8 F 82 21 120/77 97 02/25/17 12:00 02/25/17 12:00 02/25/17 12:00 02/25/17 12:00 02/25/17 06:00 Intake and Output: 02/25/17 02/25/17 06:59 18:59 Intake Total 2480 Output Total 760 Balance 1720 - Medications Medications: Current Medications Acetaminophen (Tylenol 325mg Tab) 650 mg PO Q6H PRN PRN Reason: Fever >100.4 F Last Admin: 02/24/17 17:45 Dose: 650 mg Guaifenesin/Codeine Phosphate (Robitussin W/Codeine) 5 ml PO Q4H PRN PRN Reason: Cough and congestion Sodium Chloride (Sodium Chloride 0.9%) 1,000 mls @ 100 mls/hr IV .Q10H [facility] Last Admin: 02/25/17 13:29 Dose: 100 mls/hr Levofloxacin/Dextrose (Levaquin 750mg) 750 mg IVPB DAILY [facility] Last Admin: 02/25/17 11:29 Dose: 750 mg Ondansetron HCl (Zofran Inj) 4 mg IVP Q6H PRN PRN Reason: Nausea/Vomiting Oseltamivir Phosphate (Tamiflu Cap) 75 mg PO BID [facility] PRN Reason: Protocol Stop: 03/01/17 09:54 Last Admin: 02/25/17 11:20 Dose: 75 mg Pantoprazole Sodium (Protonix Ec Tab) 40 mg PO 0600 [facility] Last Admin: 02/25/17 06:36 Dose: 40 mg Polyethylene Glycol (Miralax) 17 gm PO BID [facility] Last Admin: 02/25/17 11:24 Dose: 17 gm - Labs Labs: 02/25/17 09:40 02/25/17 09:40 PT 13.2 SECONDS (9.4-12.5) H 02/23/17 15:51 INR 1.15 (0.93-1.08) H 02/23/17 15:51 APTT 27.0 Seconds (25.1-36.5) 02/23/17 15:51 Attending/Attestation - Attestation I have personally seen and examined this patient.: Yes I have fully participated in the care of the patient.: Yes I have reviewed all pertinent clinical information, including history, physical exam and plan: Yes Notes (Text): 02/25/17 14:07 Patient was seen and examined with medical technologist chemistry. Agreed with resident assessment and plan. 46 year old Hungarian speaking male with aPMH of Hyperlipidemia was admitted with fever/cough and confusion, Patient confusion has resolved.Patient CT scan of head is negative.His fever is likely Bronchitis/or early Pneumonia, Procalcitonin level is high suggestive of bacterial rather than viral.We will continue Levofloxacin but will discontinue Tamiflu.Blood culktures are negative for any growth.We will check urine antigen for streptococal Pneumonia and Legionella antigen. Management plan was discussed in detail with patient Education was provided.
[2017-02-25] MEDS: POLYETHYLENE GLYCOL 3350 17 GM/Dose PACKET PO SCH ×2 (11:24→17:32)
--- NOTE | 2017-02-25 12:01 | RAD ---
HISTORY: Cough - pneu vs bronchitis COMPARISON: 02/23/2017 FINDINGS: LUNGS: No active pulmonary disease. PLEURA: No significant pleural effusion identified, no pneumothorax apparent. CARDIOVASCULAR: Normal. OSSEOUS STRUCTURES: No significant abnormalities. VISUALIZED UPPER ABDOMEN: Normal. OTHER FINDINGS: None. IMPRESSION: No active disease.
[2017-02-26 01:30] VITALS: RESP 22
[2017-02-26] MEDS: Pantoprazole 40 mg EC Tab PO SCH (05:41)
[2017-02-26 06:27] VITALS: BP 110/61; PULSE 69; TEMP 98.8; O2SAT 99
[2017-02-26 06:28] LABS: BASO # 0.01 K/mm3 (0.0-2.0); BASO % 0.3 % (0.0-3.0); EOS % 0.5 % (1.5-5.0); GRAN # 1.68 (1.4-6.5); GRAN % 43.5 % (50.0-68.0); HEMOGLOBIN 11.5 g/dL (14.0-18.0); LYMPH # 1.7 (1.2-3.4); MEAN CELL VOLUME 76.3 fl (80.0-105.0); MEAN CORPUSCULAR HEMOGLOBIN 24.6 pg (25.0-35.0); MEAN CORPUSCULAR HGB CONC 32.2 g/dl (31.0-37.0); MEAN PLATELET VOLUME 12.8 fl (7.0-11.0); MONO # 0.5 (0.1-0.6); MONO % 11.7 % (1.0-6.0); RBC 4.68 10^6/uL (3.5-6.1); RED CELL DISTRIBUTION WIDTH 13.6 % (11.5-14.5); WHITE BLOOD COUNT 3.9 10^3/ul (4.5-11.0)
[2017-02-26 06:56] LABS: ALBUMIN 3.5 g/dL (3.0-4.8); ALT/SGPT 54 U/L (7-56); AST/SGOT 32 U/L (17-59); BLOOD UREA NITROGEN 8 mg/dL (7-21); CALCIUM 9.1 mg/dL (8.4-10.5); GFR AFRICAN-AMERICAN > 60; GFR NON-AFRICAN AMERICAN > 60
[2017-02-26] MEDS: Sodium Chloride 0.9% 1,000 ML IV SCH (08:15)
[2017-02-26] MEDS ORDERED: levoFLOXacin 750 mg in D5W 750 MG/150 ML BAG IVPB SCH (10:00)
[2017-02-26] MEDS: POLYETHYLENE GLYCOL 3350 17 GM/Dose PACKET PO SCH (10:45)
--- NOTE | 2017-02-26 17:28 | CP.PCM.DIS ---
<Lola Ibanez - Last Filed: 02/26/17 17:26> Provider - Provider Date of Admission: 02/23/17 19:41 Attending physician: Alicia Abernathy MD Primary care physician: NO PRIMARY CARE PROVIDER Time Spent in preparation of Discharge (in minutes): 35 Diagnosis - Discharge Diagnosis (1) Bronchitis Status: Acute (2) Altered mental status Status: Acute Hospital Course - Lab Results Lab Results: Most Recent Lab Values WBC 3.9 10^3/ul (4.5-11.0) L 02/26/17 05:20 RBC 4.68 10^6/uL (3.5-6.1) 02/26/17 05:20 Hgb 11.5 g/dL (14.0-18.0) L 02/26/17 05:20 Hct 35.7 % (42.0-52.0) L 02/26/17 05:20 MCV 76.3 fl (80.0-105.0) L 02/26/17 05:20 MCH 24.6 pg (25.0-35.0) L 02/26/17 05:20 MCHC 32.2 g/dl (31.0-37.0) 02/26/17 05:20 RDW 13.6 % (11.5-14.5) 02/26/17 05:20 Plt Count 141 10^3/uL (120.0-450.0) 02/26/17 05:20 MPV 12.8 fl (7.0-11.0) H 02/26/17 05:20 Gran % 43.5 % (50.0-68.0) L 02/26/17 05:20 Lymph % (Auto) 44.0 % (22.0-35.0) H 02/26/17 05:20 [place] % (Auto) 11.7 % (1.0-6.0) H 02/26/17 05:20 Eos % (Auto) 0.5 % (1.5-5.0) L 02/26/17 05:20 Baso % (Auto) 0.3 % (0.0-3.0) 02/26/17 05:20 Gran # 1.68 (1.4-6.5) 02/26/17 05:20 Lymph # 1.7 (1.2-3.4) 02/26/17 05:20 [place] # 0.5 (0.1-0.6) 02/26/17 05:20 Eos # 0.0 (0.0-0.7) 02/26/17 05:20 Baso # 0.01 K/mm3 (0.0-2.0) 02/26/17 05:20 PT 13.2 SECONDS (9.4-12.5) H 02/23/17 15:51 INR 1.15 (0.93-1.08) H 02/23/17 15:51 APTT 27.0 Seconds (25.1-36.5) 02/23/17 15:51 pO2 50 mm/Hg (30-55) 02/23/17 16:41 VBG pH 7.38 (7.32-7.43) 02/23/17 16:41 VBG pCO2 43.0 (40-60) 02/23/17 16:41 VBG HCO3 25.4 mmol/l (21-28) 02/23/17 16:41 VBG Total CO2 26.7 mmol.L (22-28) 02/23/17 16:41 VBG O2 Sat (Calc) 89.9 % (40-65) H 02/23/17 16:41 VBG Base Excess 0.0 mmol/L (0.0-2.0) 02/23/17 16:41 VBG Potassium 4.1 mmol/L (3.6-5.2) 02/23/17 16:41 Sodium 135.0 mmol/L (132-148) 02/23/17 16:41 Chloride 104.0 mmol/L (98-107) 02/23/17 16:41 Glucose 135 mg/dl (75-110) H 02/23/17 16:41 Lactate 1.7 mmol/L (0.7-2.1) 02/23/17 16:41 FiO2 21.0 % 02/23/17 16:41 Sodium 139 mmol/L (132-148) 02/26/17 05:20 Potassium 4.1 mmol/L (3.6-5.0) 02/26/17 05:20 Chloride 105 mmol/L (98-107) 02/26/17 05:20 Carbon Dioxide 26 mmol/L (21-33) 02/26/17 05:20 Anion Gap 13 (10-20) 02/26/17 05:20 BUN 8 mg/dL (7-21) 02/26/17 05:20 Creatinine 0.8 mg/dl (0.8-1.5) 02/26/17 05:20 Est GFR ( Amer) > 60 02/26/17 05:20 Est GFR (Non-Af Amer) > 60 02/26/17 05:20 POC Glucose (mg/dL) 123 mg/dL (65-110) H 02/23/17 22:21 Random Glucose 93 mg/dL (70-110) 02/26/17 05:20 Hemoglobin A1c 5.8 % (4.2-6.5) 02/23/17 15:51 Calcium 9.1 mg/dL (8.4-10.5) 02/26/17 05:20 Phosphorus 3.4 mg/dL (2.5-4.5) 02/24/17 06:15 Magnesium 2.1 mg/dL (1.7-2.2) 02/24/17 06:15 Total Bilirubin 0.5 mg/dL (0.2-1.3) 02/26/17 05:20 AST 32 U/L (17-59) 02/26/17 05:20 ALT 54 U/L (7-56) 02/26/17 05:20 Alkaline Phosphatase 49 U/L (38-126) 02/26/17 05:20 Lactate Dehydrogenase 488 U/L (333-699) 02/23/17 15:51 Total Creatine Kinase 73 U/L (35-230) 02/23/17 15:51 Troponin I < 0.01 ng/mL 02/23/17 15:51 Total Protein 7.0 g/dL (5.8-8.3) 02/26/17 05:20 Albumin 3.5 g/dL (3.0-4.8) 02/26/17 05:20 Globulin 3.5 gm/dL 02/26/17 05:20 Albumin/Globulin Ratio 1.0 (1.1-1.8) L 02/26/17 05:20 Triglycerides 103 mg/dL (35-160) 02/23/17 15:51 Cholesterol 189 mg/dL (130-200) 02/23/17 15:51 LDL Cholesterol Direct 131 mg/dL (0-129) H 02/23/17 15:51 HDL Cholesterol 31 mg/dL (29-60) 02/23/17 15:51 Lipase 90 U/L (23-300) 02/23/17 15:51 Procalcitonin 4.41 NG/ML (0.19-0.49) H 02/26/17 06:30 Venous Blood Potassium 4.1 mmol/L (3.6-5.2) 02/23/17 16:41 Urine Color Yellow (YELLOW) 02/24/17 18:00 Urine Appearance Clear (CLEAR) 02/24/17 18:00 Urine pH 7.0 (4.7-8.0) 02/24/17 18:00 Ur Specific Welda <= 1.005 (1.005-1.035) 02/24/17 18:00 Urine Protein Negative mg/dL (<30 mg/dL) 02/24/17 18:00 Urine Glucose (UA) Negative mg/dL (NEGATIVE) 02/24/17 18:00 Urine Ketones Negative mg/dL (NEGATIVE) 02/24/17 18:00 Urine Blood Small (NEGATIVE) H 02/24/17 18:00 Urine Nitrate Negative (NEGATIVE) 02/24/17 18:00 Urine Bilirubin Negative (NEGATIVE) 02/24/17 18:00 Urine Urobilinogen 0.2 E.U./dL (<1 E.U./dL) 02/24/17 18:00 Ur Leukocyte Esterase Negative Adriana/uL (NEGATIVE) 02/24/17 18:00 Urine RBC 1 - 3 /hpf (0-2) 02/24/17 18:00 Urine WBC Negative /hpf (0-6) 02/24/17 18:00 Ur Epithelial Cells 1 - 3 /hpf (0-5) 02/24/17 18:00 Salicylates < 1 mg/dL (2.0-20.0) L 02/23/17 15:30 Urine Opiates Screen Negative (NEGATIVE) 02/23/17 18:13 Urine Methadone Screen Negative (NEGATIVE) 02/23/17 18:13 Acetaminophen < 10.0 ug/ml (10.0-20.0) L 02/23/17 15:30 Ur Barbiturates Screen Negative (NEGATIVE) 02/23/17 18:13 Ur Phencyclidine Scrn Negative (NEGATIVE) 02/23/17 18:13 Ur Amphetamines Screen Negative (NEGATIVE) 02/23/17 18:13 U Benzodiazepines Scrn Negative (NEGATIVE) 02/23/17 18:13 U Oth Cocaine Metabols Negative (NEGATIVE) 02/23/17 18:13 U Cannabinoids Screen Negative (NEGATIVE) 02/23/17 18:13 Alcohol, Quantitative < 10 mg/dL (0-10) 02/23/17 15:30 HIV 1&2 Ag/Ab, 4th Gen Nonreactive (Nonreactive) 02/24/17 06:00 Influenza Typ A,B (EIA) Negative for flu a/b (NEGATIVE) 02/23/17 17:36 Ur L.pneumophila Ag Negative (NEGATIVE) 02/26/17 02:00 Blood Type B POSITIVE 02/23/17 16:41 Blood Type Confirm B POSITIVE 02/23/17 18:37 Antibody Screen Negative 02/23/17 16:41 BBK History Checked No verified bt 02/23/17 16:41 - Hospital Course Hospital Course: 46 year old maori speaking male with a past medical history significant for HLD who was BIBA after he was found to have AMS on the side of the road. According to the patient, for the past three days he has been having dry cough, tactile fever, and intermittent SOB. While at work today in [place], he decided to leave early as he was feeling "weak". On his way home from work, he reports that he began to feel "cold and shaky" so he pulled his car over. Patient states that he has no recollection of any events from that time until he woke up several hours later in the ED. He reports that he has been taking three [place]ian brand medications, including one antibiotic, for his symptoms for the past two days but that he has not experienced much relief from these medications and cannot recall the name of these medications. While in the ED, patient was noted to be tachycardic and febrile. A chest x-ray, CT head and CTA chest were ordered and showed no acute processes, including intracranial hemorrhage, focal pneumonia and central pulmonary embolus. He denies any recent travel/trauma/surgery/immobilization, sick contacts, headache, changes in his vision, rhinorrhea, ear pain/discharge, sore throat, dysphagia, chest pain, palpitations, leg swelling, orthopnea, wheezing, hemoptysis, N/V, diarrhea, constipation, melena, burning/pain with urination, urinary frequency, hematuria , skin changes, joint pain, or any numbness/tingling/weakness of any extremity. Pt was found to be influenza neg, legionella urine ag neg, procalcitonin elevated at 35. Patient started on levaquin IV and Robitussin, which provided relief of symptoms. PT eval obtained, recommended home. Blood and urine cultures were negative. Pt had resolution of his altered mental status and resolving cough on day of dishcharge. Pt discharged with 5 days of PO Levaquin for a completion of 10 days total. Pt advised to take OTC Robitussin for cough as needed. Discharge Exam - Head Exam Head Exam: ATRAUMATIC, NORMOCEPHALIC - Eye Exam Eye Exam: EOMI, PERRL. absent: Conjunctival injection, Scleral icterus Pupil Exam: NORMAL ACCOMODATION, PERRL. absent: Irregular, Unequal - ENT Exam ENT Exam: Mucous Membranes Moist - Neck Exam Neck exam: Full Rom - Respiratory Exam Respiratory Exam: Clear to PA & Lateral. absent: Chest Wall Tenderness, Decreased Breath Sounds, Respiratory Distress, NORMAL BREATHING PATTERN - Cardiovascular Exam Cardiovascular Exam: RRR, +S1, +S2. absent: Systolic Murmur - GI/Abdominal Exam GI & Abdominal Exam: Normal Bowel Sounds, Soft. absent: Diminished Bowel Sounds , Distended, Guarding, Pulsatile Mass, Tenderness - Rectal Exam Rectal Exam: Deferred - Extremities Exam Extremities exam: normal inspection - Neurological Exam Neurological exam: Alert, Oriented x3 - Psychiatric Exam Psychiatric exam: Normal Affect, Normal Mood - Skin Skin Exam: Dry, Normal Color, Warm Discharge Plan - Discharge Medications Prescriptions: Levofloxacin [Levaquin] 750 mg PO DAILY #5 tablet - Follow Up Plan Condition: STABLE Disposition: HOME/ ROUTINE Patient education suggested?: Yes Instructions: Syncope (DC), Acute Bronchitis (GEN) Additional Instructions: - Take Levaquin for 5 days. - Take OTC Robitussin for cough - Follow up with PMD in 1 week. - If symptoms worsen or any concerns, come back to ED. Referrals: PCP,NO [Primary Care Provider] - <Alicia Abernathy - Last Filed: 02/26/17 17:50> Provider - Provider Date of Admission: 02/23/17 19:41 Attending physician: Alicia Abernathy MD Primary care physician: NO PRIMARY CARE PROVIDER Hospital Course - Lab Results Lab Results: Most Recent Lab Values WBC 3.9 10^3/ul (4.5-11.0) L 02/26/17 05:20 RBC 4.68 10^6/uL (3.5-6.1) 02/26/17 05:20 Hgb 11.5 g/dL (14.0-18.0) L 02/26/17 05:20 Hct 35.7 % (42.0-52.0) L 02/26/17 05:20 MCV 76.3 fl (80.0-105.0) L 02/26/17 05:20 MCH 24.6 pg (25.0-35.0) L 02/26/17 05:20 MCHC 32.2 g/dl (31.0-37.0) 02/26/17 05:20 RDW 13.6 % (11.5-14.5) 02/26/17 05:20 Plt Count 141 10^3/uL (120.0-450.0) 02/26/17 05:20 MPV 12.8 fl (7.0-11.0) H 02/26/17 05:20 Gran % 43.5 % (50.0-68.0) L 02/26/17 05:20 Lymph % (Auto) 44.0 % (22.0-35.0) H 02/26/17 05:20 [place] % (Auto) 11.7 % (1.0-6.0) H 02/26/17 05:20 Eos % (Auto) 0.5 % (1.5-5.0) L 02/26/17 05:20 Baso % (Auto) 0.3 % (0.0-3.0) 02/26/17 05:20 Gran # 1.68 (1.4-6.5) 02/26/17 05:20 Lymph # 1.7 (1.2-3.4) 02/26/17 05:20 [place] # 0.5 (0.1-0.6) 02/26/17 05:20 Eos # 0.0 (0.0-0.7) 02/26/17 05:20 Baso # 0.01 K/mm3 (0.0-2.0) 02/26/17 05:20 PT 13.2 SECONDS (9.4-12.5) H 02/23/17 15:51 INR 1.15 (0.93-1.08) H 02/23/17 15:51 APTT 27.0 Seconds (25.1-36.5) 02/23/17 15:51 pO2 50 mm/Hg (30-55) 02/23/17 16:41 VBG pH 7.38 (7.32-7.43) 02/23/17 16:41 VBG pCO2 43.0 (40-60) 02/23/17 16:41 VBG HCO3 25.4 mmol/l (21-28) 02/23/17 16:41 VBG Total CO2 26.7 mmol.L (22-28) 02/23/17 16:41 VBG O2 Sat (Calc) 89.9 % (40-65) H 02/23/17 16:41 VBG Base Excess 0.0 mmol/L (0.0-2.0) 02/23/17 16:41 VBG Potassium 4.1 mmol/L (3.6-5.2) 02/23/17 16:41 Sodium 135.0 mmol/L (132-148) 02/23/17 16:41 Chloride 104.0 mmol/L (98-107) 02/23/17 16:41 Glucose 135 mg/dl (75-110) H 02/23/17 16:41 Lactate 1.7 mmol/L (0.7-2.1) 02/23/17 16:41 FiO2 21.0 % 02/23/17 16:41 Sodium 139 mmol/L (132-148) 02/26/17 05:20 Potassium 4.1 mmol/L (3.6-5.0) 02/26/17 05:20 Chloride 105 mmol/L (98-107) 02/26/17 05:20 Carbon Dioxide 26 mmol/L (21-33) 02/26/17 05:20 Anion Gap 13 (10-20) 02/26/17 05:20 BUN 8 mg/dL (7-21) 02/26/17 05:20 Creatinine 0.8 mg/dl (0.8-1.5) 02/26/17 05:20 Est GFR ( Amer) > 60 02/26/17 05:20 Est GFR (Non-Af Amer) > 60 02/26/17 05:20 POC Glucose (mg/dL) 123 mg/dL (65-110) H 02/23/17 22:21 Random Glucose 93 mg/dL (70-110) 02/26/17 05:20 Hemoglobin A1c 5.8 % (4.2-6.5) 02/23/17 15:51 Calcium 9.1 mg/dL (8.4-10.5) 02/26/17 05:20 Phosphorus 3.4 mg/dL (2.5-4.5) 02/24/17 06:15 Magnesium 2.1 mg/dL (1.7-2.2) 02/24/17 06:15 Total Bilirubin 0.5 mg/dL (0.2-1.3) 02/26/17 05:20 AST 32 U/L (17-59) 02/26/17 05:20 ALT 54 U/L (7-56) 02/26/17 05:20 Alkaline Phosphatase 49 U/L (38-126) 02/26/17 05:20 Lactate Dehydrogenase 488 U/L (333-699) 02/23/17 15:51 Total Creatine Kinase 73 U/L (35-230) 02/23/17 15:51 Troponin I < 0.01 ng/mL 02/23/17 15:51 Total Protein 7.0 g/dL (5.8-8.3) 02/26/17 05:20 Albumin 3.5 g/dL (3.0-4.8) 02/26/17 05:20 Globulin 3.5 gm/dL 02/26/17 05:20 Albumin/Globulin Ratio 1.0 (1.1-1.8) L 02/26/17 05:20 Triglycerides 103 mg/dL (35-160) 02/23/17 15:51 Cholesterol 189 mg/dL (130-200) 02/23/17 15:51 LDL Cholesterol Direct 131 mg/dL (0-129) H 02/23/17 15:51 HDL Cholesterol 31 mg/dL (29-60) 02/23/17 15:51 Lipase 90 U/L (23-300) 02/23/17 15:51 Procalcitonin 4.41 NG/ML (0.19-0.49) H 02/26/17 06:30 Venous Blood Potassium 4.1 mmol/L (3.6-5.2) 02/23/17 16:41 Urine Color Yellow (YELLOW) 02/24/17 18:00 Urine Appearance Clear (CLEAR) 02/24/17 18:00 Urine pH 7.0 (4.7-8.0) 02/24/17 18:00 Ur Specific Welda <= 1.005 (1.005-1.035) 02/24/17 18:00 Urine Protein Negative mg/dL (<30 mg/dL) 02/24/17 18:00 Urine Glucose (UA) Negative mg/dL (NEGATIVE) 02/24/17 18:00 Urine Ketones Negative mg/dL (NEGATIVE) 02/24/17 18:00 Urine Blood Small (NEGATIVE) H 02/24/17 18:00 Urine Nitrate Negative (NEGATIVE) 02/24/17 18:00 Urine Bilirubin Negative (NEGATIVE) 02/24/17 18:00 Urine Urobilinogen 0.2 E.U./dL (<1 E.U./dL) 02/24/17 18:00 Ur Leukocyte Esterase Negative Adriana/uL (NEGATIVE) 02/24/17 18:00 Urine RBC 1 - 3 /hpf (0-2) 02/24/17 18:00 Urine WBC Negative /hpf (0-6) 02/24/17 18:00 Ur Epithelial Cells 1 - 3 /hpf (0-5) 02/24/17 18:00 Salicylates < 1 mg/dL (2.0-20.0) L 02/23/17 15:30 Urine Opiates Screen Negative (NEGATIVE) 02/23/17 18:13 Urine Methadone Screen Negative (NEGATIVE) 02/23/17 18:13 Acetaminophen < 10.0 ug/ml (10.0-20.0) L 02/23/17 15:30 Ur Barbiturates Screen Negative (NEGATIVE) 02/23/17 18:13 Ur Phencyclidine Scrn Negative (NEGATIVE) 02/23/17 18:13 Ur Amphetamines Screen Negative (NEGATIVE) 02/23/17 18:13 U Benzodiazepines Scrn Negative (NEGATIVE) 02/23/17 18:13 U Oth Cocaine Metabols Negative (NEGATIVE) 02/23/17 18:13 U Cannabinoids Screen Negative (NEGATIVE) 02/23/17 18:13 Alcohol, Quantitative < 10 mg/dL (0-10) 02/23/17 15:30 HIV 1&2 Ag/Ab, 4th Gen Nonreactive (Nonreactive) 02/24/17 06:00 Influenza Typ A,B (EIA) Negative for flu a/b (NEGATIVE) 02/23/17 17:36 Ur L.pneumophila Ag Negative (NEGATIVE) 02/26/17 02:00 Blood Type B POSITIVE 02/23/17 16:41 Blood Type Confirm B POSITIVE 02/23/17 18:37 Antibody Screen Negative 02/23/17 16:41 BBK History Checked No verified bt 02/23/17 16:41 Attending/Attestation - Attestation I have personally seen and examined this patient.: Yes I have fully participated in the care of the patient.: Yes I have reviewed all pertinent clinical information, including history, physical exam and plan: Yes Notes (Text): 02/26/17 17:46 46 year old male who was admitted with altered mental status, fever and cough. He had a negative CT head, CT chest and CXR, however procalcitonin was elevated suggestive of possible early pneumonia vs bronchitis. He was started on iv antibiotics with improvement of symptoms. His mental status returned to normal. His repeat procalcitonin level also improved. Patient is discharged home to follow up with his pmd or [facility]. Continue with po antibiotics as prescribed. Alicia Abernathy MD Hospitalist.
[2017-02-27 22:15] LABS: SOURCE SERUM
== END 2017-02-26 17:55 | disposition home or self-care (01) | DRG 97 ==
LOC: ED 15:27 → ERH 19:41 → 2RSO 21:41 → 2A 02-26 10:05
PROVIDERS: ADMIT Internal Medicine; ATTEND Internal Medicine
DX: J20.9 Acute bronchitis, unspecified (principal); R41.82 Altered mental status, unspecified; E83.39 Other disorders of phosphorus metabolism; R00.0 Tachycardia, unspecified; E83.42 Hypomagnesemia; K59.00 Constipation, unspecified; E78.5 Hyperlipidemia, unspecified; K64.9 Unspecified hemorrhoids; Z82.5 Family history of asthma and other chronic lower respiratory diseases

== ENCOUNTER 2017-10-03 11:39 | Emergency (ER) | payer OTHER ==
[2017-10-03 11:54] VITALS: TEMP 98.5
[2017-10-03] MEDS ORDERED: Oxycodone/Acetaminophen 5/325 mg Tab PO STA (12:26)
[2017-10-03] MEDS ORDERED: Hydrocortisone 2.5% Rectal Cream(30 gm) PR STA (12:28)
--- NOTE | 2017-10-03 12:47 | ED PDOC ---
Arrival/HPI - General Chief Complaint: GI Problem Time Seen by Provider: 10/03/17 12:01 Historian: Patient Past Medical History - Infectious Disease Hx of Infectious Diseases: None - Tetanus Immunization Tetanus Immunization: Unknown - Cardiac Hx Cardiac Disorders: Yes - Pulmonary Hx Respiratory Disorders: No - Neurological Hx Neurological Disorder: No - HEENT Hx HEENT Disorder: No - Renal Hx Renal Disorder: No - Endocrine/Metabolic Hx Endocrine Disorders: No - Hematological/Oncological Hx Blood Disorders: No - Integumentary Hx Dermatological Disorder: No - Musculoskeletal/Rheumatological Hx Musculoskeletal Disorders: No - Gastrointestinal Hx Gastrointestinal Disorders: Yes Hx Hemorrhoids: Yes - Genitourinary/Gynecological Hx Genitourinary Disorders: No - Psychiatric Hx Psychophysiologic Disorder: No Hx Substance Use: No - Surgical History Hx Tonsillectomy: Yes Family/Social History Smoking Status: Unknown If Ever Smoked Hx Alcohol Use: No Hx Substance Use: No Allergies/Home Meds Allergies/Adverse Reactions: Allergies No Known Allergies Allergy (Verified 10/03/17 11:49) NKA Home Medications: Home Meds Medication Instructions Recorded Confirmed Hydrocortisone [Procto-Med Hc] 1 applic TOP DAILY 10/03/17 10/03/17 Physical Exam Vital Signs Temp Pulse Resp BP Pulse Ox 10/03/17 11:50 98.5 F 87 16 124/76 97 Medical Decision Making - Medication Orders Current Medication Orders: Discontinued Medications Hydrocortisone (Anusol-Hc) 30 gm MD ONCE STA Stop: 10/03/17 12:29 Oxycodone/Acetaminophen (Percocet 5/325 Mg Tab) 1 tab PO STAT STA Stop: 10/03/17 12:27 Disposition/Present on Arrival - Present on Arrival History of DVT/PE: No History of Uncontrolled Diabetes: No Urinary Catheter: No History of Decub. Ulcer: No History Surgical Site Infection Following: None - Disposition Referrals: FAMILY PROVIDER,NO [Primary Care Provider] - Follow up with primary
--- NOTE | 2017-10-03 13:13 | ED PDOC ---
Arrival/HPI - General Chief Complaint: GI Problem Time Seen by Provider: 10/03/17 12:01 Historian: Patient - History of Present Illness Narrative History of Present Illness (Text): 10/03/17 13:01 Patient is a 47 year old male who presents to the Emergency department complaining of rectal pain secondary to hemorrhoids. Patient reports that he has had a hemorrhoid for the past few months, and was prescribed a hemorrhoid cream in [place]. He mentions that he had rectal bleeding a few months ago, but denies any bleeding recently. Patient states that he feels like his hemorrhoid is obstructing his rectum and experiences pain when sitting. He has been unable to sleep the past few days because of the pain and frequently sits in hot water for 10-15 minutes for alleviation. Patient admits to having constipation and straining during his bowel movements. Patient denies abdominal pain, nausea, vomiting, diarrhea, urinary changes, or any other complaint. Time/Duration: > month Symptom Course: Worsening Context: Home Past Medical History - Provider Review Nursing Documentation Reviewed: Yes - Infectious Disease Hx of Infectious Diseases: None - Tetanus Immunization Tetanus Immunization: Unknown - Cardiac Hx Cardiac Disorders: Yes - Pulmonary Hx Respiratory Disorders: No - Neurological Hx Neurological Disorder: No - HEENT Hx HEENT Disorder: No - Renal Hx Renal Disorder: No - Endocrine/Metabolic Hx Endocrine Disorders: No - Hematological/Oncological Hx Blood Disorders: No - Integumentary Hx Dermatological Disorder: No - Musculoskeletal/Rheumatological Hx Musculoskeletal Disorders: No - Gastrointestinal Hx Gastrointestinal Disorders: Yes Hx Hemorrhoids: Yes - Genitourinary/Gynecological Hx Genitourinary Disorders: No - Psychiatric Hx Psychophysiologic Disorder: No Hx Substance Use: No - Surgical History Hx Tonsillectomy: Yes Family/Social History - Physician Review Nursing Documentation Reviewed: Yes Family/Social History: No Known Family HX Smoking Status: Unknown If Ever Smoked Hx Alcohol Use: No Hx Substance Use: No Allergies/Home Meds Allergies/Adverse Reactions: Allergies No Known Allergies Allergy (Verified 10/03/17 11:49) NKA Home Medications: Home Meds Medication Instructions Recorded Confirmed Hydrocortisone [Procto-Med Hc] 1 applic TOP DAILY 10/03/17 10/03/17 Review of Systems - Physician Review All systems were reviewed & negative as marked: Yes - Review of Systems Gastrointestinal: Constipation. absent: Abdominal Pain, Nausea, Vomiting, Other (rectal bleeding) Physical Exam Vital Signs Reviewed: Yes Vital Signs Temp Pulse Resp BP Pulse Ox 10/03/17 14:05 100 10/03/17 14:03 82 17 125/80 100 10/03/17 11:50 98.5 F 87 16 124/76 97 Temperature: Afebrile Blood Pressure: Normal Pulse: Regular Respiratory Rate: Normal Appearance: Positive for: Well-Appearing Mental Status: Positive for: Alert and Oriented X 3 - Systems Exam Head: Present: Atraumatic, Normocephalic Pupils: Present: PERRL Extroacular Muscles: Present: EOMI Conjunctiva: Present: Normal Mouth: Present: Moist Mucous Membranes Neck: Present: Normal Range of Motion Respiratory/Chest: Present: Clear to Auscultation, Good Air Exchange. No: Respiratory Distress, Accessory Muscle Use Cardiovascular: Present: Regular Rate and Rhythm, Normal S1, S2. No: Murmurs Abdomen: No: Tenderness, Distention, Peritoneal Signs Rectal: Present: Hemorrhoids (Hemorrhoid non strangulated, non bleeding, tender to palpation.) Back: Present: Normal Inspection Upper Extremity: Present: Normal Inspection. No: Cyanosis, Edema Lower Extremity: Present: Normal Inspection. No: Edema Neurological: Present: GCS=15, CN II-XII Intact, Speech Normal Skin: Present: Warm, Dry, Normal Color. No: Rashes Psychiatric: Present: Alert, Oriented x 3, Normal Insight, Normal Concentration Medical Decision Making ED Course and Treatment: 10/03/17 13:17 Impression: Patient is a 47 year old male who presents to the Emergency department complaining of rectal pain secondary to hemorrhoid. Differential Diagnosis included but are not limited to: Plan: -- Percocet -- Anusol -- Reassess and disposition Prior Visits: Notes and results from previous visits were reviewed. Progress Notes: 10/03/17 22:20 On re evaluation pt was smiling, sates he feels better and asking for DC after medication He was DC home with proctofoam and Tramadol for pain Advised eat high fiber diet to avoid straining Referred to General surgeon/clinic TRT ED for any new or worsening symptoms - Medication Orders Current Medication Orders: Discontinued Medications Hydrocortisone (Anusol-Hc) 30 gm SC ONCE STA Stop: 10/03/17 12:29 Last Admin: 10/03/17 13:09 Dose: 1 appful Oxycodone/Acetaminophen (Percocet 5/325 Mg Tab) 1 tab PO STAT STA Stop: 10/03/17 12:27 Last Admin: 10/03/17 13:08 Dose: 1 tab MAR Pain Assessment Document 10/03/17 13:08 SF (Rec: 10/03/17 13:08 [id number]) Pain Reassessment Is this a pain reassessment? Yes Sleep Is patient sleeping during reassessment? No Presence of Pain Presence of Pain Yes - Scribe Statement The provider has reviewed the documentation as recorded by the Scribe Max Pisano Provider Scribe Attestation: All medical record entries made by the Scribe were at my direction and personally dictated by me. I have reviewed the chart and agree that the record accurately reflects my personal performance of the history, physical exam, medical decision making, and the department course for this patient. I have also personally directed, reviewed, and agree with the discharge instructions and disposition. Disposition/Present on Arrival - Present on Arrival Any Indicators Present on Arrival: No History of DVT/PE: No History of Uncontrolled Diabetes: No Urinary Catheter: No History of Decub. Ulcer: No History Surgical Site Infection Following: None - Disposition Have Diagnosis and Disposition been Completed?: Yes Diagnosis: Hemorrhoid Disposition: HOME/ ROUTINE Disposition Time: 13:40 Patient Plan: Discharge Condition: STABLE Discharge Instructions (ExitCare): Hemorrhoids Additional Instructions: Follow up with the clinic/surgeon Return to ED for any new or worsening symptoms Prescriptions: Hydrocortisone [Proctosol-Hc] 28.35 gm RC TID #30 cream.[email or web address] traMADol [Ultram] 50 mg PO TID #12 tab Referrals: FAMILY PROVIDER,NO [Primary Care Provider] - Follow up with primary Stephanie Lopez MD [Staff Provider] - Follow up with primary Katarina Ray MD [Medical Doctor] - Follow up with primary Forms: [employer] (Uzbek)
[2017-10-03 14:05] VITALS: BP 125/80; PULSE 82; RESP 17; O2SAT 100
== END 2017-10-03 14:05 | disposition home or self-care (01) ==
LOC: ED 11:39
DX: K64.9 Unspecified hemorrhoids (principal)